=== PATIENT | female | born 1960 | race Caucasian/White ===

== ENCOUNTER 2020-03-08 13:05 | Outpatient (CLI) | payer SELFPAY ==
--- NOTE | 2020-03-08 15:01 | XRAY Report ---
PROCEDURE: Chest 2 View X-Ray INDICATIONS: COUGH TECHNIQUE: 2 view(s) of the chest. COMPARISON: None. FINDINGS: Surgical changes and devices: None. Lungs and pleura: No pleural effusions or pneumothorax. Lungs are clear. Mediastinum: Mediastinal contours are normal. Heart size is normal. Bones and chest wall: No suspicious bony abnormalities. Soft tissues appear unremarkable. IMPRESSION: Normal chest. Reviewed by: Yoly Loja MD on 03/08/2020 3:00 PM PDT Approved by: Yoly Loja MD on 03/08/2020 3:00 PM PDT Station ID: [id number]
== END 2020-03-08 13:06 | disposition home or self-care (01) ==
LOC: DI 13:05
PROVIDERS: ATTEND Physician Assistant
DX: R05 Cough (principal)
CPT/HCPCS: 71046

== ENCOUNTER 2022-05-19 08:39 | Outpatient (CLI) | payer BC ==
--- NOTE | 2022-05-19 11:48 | XRAY Report ---
PROCEDURE: Hand 2 View BILAT INDICATIONS: ARTHRITIS, BILATERAL HANDS TECHNIQUE: Two views of the bilateral hand(s) acquired. COMPARISON: None. FINDINGS: Bones: Mild 1st CMC and triscaphe joint space narrowing with marginal osteophytosis. Mild 5th distal interphalangeal joint space narrowing and marginal osteophytosis. No significant arthritic or degene rative changes otherwise. No periarticular erosions or lucencies demonstrated. No fractures or disloc ations. No suspicious bony lesions. Soft tissues: No suspicious soft tissue calcifications. 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 Reviewed by: Bucky Andrade MD on 05/19/2022 11:47 AM PDT Approved by: Bucky Andrade MD on 05/19/2022 11:47 AM PDT Station ID: [id number]
== END 2022-05-19 08:40 | disposition home or self-care (01) ==
LOC: DI.N 08:39
PROVIDERS: ATTEND Family Medicine
DX: M19.041 Primary osteoarthritis, right hand (principal); M19.031 Primary osteoarthritis, right wrist; M19.042 Primary osteoarthritis, left hand; M19.032 Primary osteoarthritis, left wrist; M18.0 Bilateral primary osteoarthritis of first carpometacarpal joints